=== PATIENT | male | born 1940 | race Caucasian/White ===

== ENCOUNTER 2018-04-03 13:16 | Emergency (ER) | payer MEDICARE ==
[~2018-04-03] VITALS: Ht 182.9 cm; Wt 93.0 kg
[~2018-04-03 13:16] MED LIST: AMLODIPINE BESY10 MG PO; GLIMEPIRIDE4 MG PO; HYDROCHLOROTHIA50 MG PO; METFORMIN HCL1000 M1 PO; OMEPRAZOLE40 MG PO
--- NOTE | 2018-04-03 15:18 | Diagnostic Imaging Report ---
EXAMINATION: CT of the cervical spine HISTORY: Status post fall, head and neck pain COMPARISON: None available TECHNIQUE: Multidetector helical axial images were obtained without contrast from the foramen magnum to T1. The images were reconstructed using bone and soft tissue algorithms and were viewed in axial, sagittal and coronal planes. FINDINGS: Alignment: Normal alignment and lordosis. Soft tissues: Normal. Vertebrae: Normal height and density. No acute fracture, infection or neoplasm. 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 Degenerative changes: C1-C2: Normal. C2-C3: Facet arthroses on the left without canal or foraminal stenoses.. C3-C4: Bilateral uncovertebral and facet arthrosis. Mild right and severe left foraminal stenosis. C4-C5: Bilateral uncovertebral and facet arthrosis. Moderate left foraminal stenosis.. C5-C6: Uncovertebral and facet arthrosis. Moderate foraminal stenoses. C6-C7: No significant stenosis. C7-T1: No significant stenosis. IMPRESSION: 1. No acute cervical spine postraumatic abnormalities. 2. Chronic degenerative changes as detailed above. Note: Acute postraumatic spinal cord, vascular or ligamentous injuries cannot adequately be assessed by CT. Signed by: Dr. Marlene Wyman M.D. on 04/03/2018 3:14 PM
--- NOTE | 2018-04-03 15:22 | Diagnostic Imaging Report ---
EXAMINATION: Head and face CT without contrast. HISTORY: Status post fall, head and neck trauma, pain COMPARISON: None. TECHNIQUE: Multidetector axial images were obtained without contrast from the foramen magnum to the vertex and over the face. The images were reconstructed using brain and bone algorithms. Thin section brain images were reformatted into coronal and sagittal planes. Intravenous contrast: None. Head CT findings: Skull/scalp: No lytic or blastic lesions. Forehead soft tissue swelling/hematoma without underlying fractures. Parenchyma: Few scattered and mildly confluent periventricular white matter hypodensities, most likely nonspecific chronic microvascular changes No mass, hemorrhage or CT evidence of acute vascular insult. Brain volume: Normal for age. Ventricles: No hydrocephalus or displacement. Arteries: No density suggestive of thrombus. Dural sinuses: No abnormal density. Extra-axial spaces: No abnormal density. Foramen magnum: No mass, Chiari malformation, or basilar invagination. Sella: No obvious mass. Paranasal/mastoid sinuses: Imaged portions unremarkable. Face CT findings: Bones: Unremarkable. Facial soft tissues: Unremarkable. Orbits contents: Unremarkable. Paranasal sinuses and drainage pathways: Clear and patent. Nasal septum and nasal cavities: Midline. Anatomic variations: No significant anatomic variations. Teeth: Edentulous, with atrophy of the maxilla and mandible. IMPRESSION: 1. No acute traumatic intracranial abnormality, particularly no hemorrhage. 2. Mild chronic microvascular ischemic changes. 3. Forehead soft tissue swelling/hematoma without underlying fractures. 4. No acute facial fractures. Signed by: Dr. Marlene Wyman M.D. on 04/03/2018 3:19 PM
== END 2018-04-03 15:45 | disposition home or self-care (01) ==
LOC: ER 13:16
DX: S00.83XA Contusion of other part of head, initial encounter (principal); S00.31XA Abrasion of nose, initial encounter; S16.1XXA Strain of muscle, fascia and tendon at neck level, initial encounter; W10.8XXA Fall (on) (from) other stairs and steps, initial encounter; Y92.008 Other place in unspecified non-institutional (private) residence as the place of occurrence of the external cause; I10 Essential (primary) hypertension; E11.9 Type 2 diabetes mellitus without complications
CPT/HCPCS: 70450; 70486; 72125; 99283